=== PATIENT | female | born 1980 | race African-American/Black ===

== ENCOUNTER 2016-12-31 11:18 | Emergency (ER) | payer SELFPAY ==
[2016-12-31] MEDS ORDERED: ONDANSETRON 4 MG TAB.RAPDIS PO ONE (12:24)
--- NOTE | 2016-12-31 12:25 | ER Document Report ---
ED General - General Mode of Arrival: Ambulatory Information source: Patient TRAVEL OUTSIDE OF THE [place] IN LAST 30 DAYS: No - HPI Onset: Other - Refer to HPI notes - General Chief Complaint: Nausea/Vomiting Stated Complaint: BACK/HEAD PAIN Notes: Patient is a 36 year old female presenting to the ED for nausea and headache. Patient states she woke up with these symptoms today. Patient complains of a headache on the left side of her head. Patient states she also has some runny nose, itchy eyes, congestion all of which are worse at night. Patient has these symptoms recurrently each year consistent with seasonal allergies. Patient also complains of some nausea with vomiting but states she has not really vomited anything since she has not eaten today. Patient states she has some numbness/tingling to the entirety of both legs. Patient also has a herniated disc and chronic back pain since 2008. Patient states her back pain has been worsening each year since her accident in 2008. Patient denies any vaginal, urinary, or bowel symptoms. Patient states she does not take anything for back pain. Patient has no known drug allergies. (LISA ORNELAS) - Related Data Allergies/Adverse Reactions: No Known Drug Allergies Allergy (Verified 12/31/16 11:36) Past Medical History - General Information source: Patient - Social History Smoking Status: Current Every Day Smoker Chew tobacco use (# tins/day): No Frequency of alcohol use: None Drug Abuse: None Family History: None Patient has suicidal ideation: No Patient has homicidal ideation: No Pulmonary Medical History: Reports: Hx Asthma GI Medical History: Reports: Hx Gastroesophageal Reflux Disease Psychiatric Medical History: Reports: Hx Bipolar Disorder Past Surgical History: Reports: Hx Orthopedic Surgery - Immunizations Immunizations up to date: No Hx Diphtheria, Pertussis, Tetanus Vaccination: No - unknown last tetanus vaccine Review of Systems - Review of Systems Constitutional: No symptoms reported EENT: See HPI, Nose congestion, Nose discharge Cardiovascular: No symptoms reported Respiratory: No symptoms reported Gastrointestinal: See HPI, Nausea, Vomiting Genitourinary: No symptoms reported Female Genitourinary: No symptoms reported Musculoskeletal: See HPI, Back pain Skin: No symptoms reported Hematologic/Lymphatic: No symptoms reported Neurological/Psychological: See HPI, Headaches -: Yes All other systems reviewed and negative Physical Exam - Vital signs Vitals: Temp Pulse Resp BP Pulse Ox 98.2 F 73 16 118/70 100 12/31/16 11:40 12/31/16 11:40 12/31/16 11:40 12/31/16 11:40 12/31/16 11:40 - Notes Notes: GENERAL: Alert, interacts well. No acute distress. HEAD: Normocephalic, atraumatic. EYES: Pupils equal, round, and reactive to light. Extraocular movements intact. ENT: Oral mucosa moist, tongue midline. NECK: Full range of motion. Supple. Trachea midline. LUNGS: Clear to auscultation bilaterally, no wheezes, rales, or rhonchi. No respiratory distress. HEART: Regular rate and rhythm. No murmurs, gallops, or rubs. ABDOMEN: Soft, non-tender. Non-distended. Bowel sounds present in all 4 quadrants. EXTREMITIES: Moves all 4 extremities spontaneously. Normal straight leg test bilaterally. Good strength and ROM bilaterally. No edema, radial and dorsalis pedis pulses 2/4 bilaterally. No cyanosis. NEUROLOGICAL: Alert and oriented x3. Normal speech. PSYCH: Normal affect, normal mood. SKIN: Warm, dry, normal turgor. No rashes or lesions noted. (LISA ORNELAS) Course - Re-evaluation Re-evalutation: 12/31/16 13:46 UA shows small leukocyte esterase, but 16 squamous epithelial cells, likely a contaminated specimen. This will be sent for culture, but not treated given minimal symptoms and we will call if the culture grows out true infection rather than contamination. Patient's symptoms are all chronic with the exception new mild nausea without any true vomiting but only dry heaving. Symptoms have resolved with Zofran. No evidence of true infection. Patient will be discharged to home, encouraged to follow-up with primary care for provider as an outpatient. Patient acknowledges that all of these other symptoms are old and has been going on for several months now. Recommend patient take ibuprofen and acetaminophen. Follow -up with primary care provider, consider physical therapy, referred to Dr. Rizo. 12/31/16 13:49 Recommended patient use antihistamine such as Claritin or Zyrtec also recommended the patient used nasal steroids. Patient agrees to try the Claritin or Zyrtec, refuses to try steroids as she does not like spraying stuff up her nose. 12/31/16 20:43 (SARI DEE) - Vital Signs Vital signs: Temp Pulse Resp BP Pulse Ox 98.1 F 62 18 126/67 H 100 12/31/16 14:01 12/31/16 14:01 12/31/16 14:01 12/31/16 14:01 12/31/16 14:01 - Laboratory Laboratory results interpreted by me: 12/31/16 12:41 Ur Leukocyte Esterase SMALL H Urine Ascorbic Acid 40 H Discharge - Discharge Clinical Impression: Nausea Chronic low back pain Qualifiers: Back pain laterality: midline Sciatica presence: without sciatica Qualified Code(s): M54.5 - Low back pain Allergic rhinitis Qualifiers: Allergic rhinitis trigger: pollen Allergic rhinitis seasonality: seasonal Qualified Code(s): J30.1 - Allergic rhinitis due to pollen Condition: Stable Disposition: HOME, SELF-CARE Instructions: Chronic Back Pain ([facility]), Stretching Exercises for the Back ([facility]) , Hay Fever ([facility]) Prescriptions: Loratadine [Claritin] 10 mg PO DAILY #30 tablet Forms: Return to Work Scribe Attestation: 12/31/16 20:43 I personally performed the services described in the documentation, reviewed and edited the documentation which was dictated to the scribe in my presence, and it accurately records my words and actions. (SARI DEE) Scribe Documentation - Scribe Written by Lanny:: Lanny Acuña, 12/31/2016 1:00 acting as scribe for :: Kitty
[2016-12-31 13:32] LABS: APPEARANCE,URINE CLOUDY; BILIRUBIN,URINE NEGATIVE (NEGATIVE); GLUCOSE, URINE NEGATIVE (NEGATIVE); KETONES,URINE NEGATIVE (NEGATIVE); LEUKOCYTE ESTERASE,URINE SMALL (NEGATIVE); NITRITE,URINE NEGATIVE (NEGATIVE); PROTEIN,URINE NEGATIVE (NEGATIVE); URINE SPECIFIC GRAVITY 1.012; UROBILINOGEN,URINE NEGATIVE mg/dL (<2.0)
[2016-12-31 14:15] VITALS: BP 126/67
== END 2016-12-31 14:02 | disposition home or self-care (01) ==
LOC: ER 11:18
DX: R11.2 Nausea with vomiting, unspecified (principal); J45.909 Unspecified asthma, uncomplicated; M54.5 Low back pain; G89.29 Other chronic pain; R51 Headache; R09.81 Nasal congestion; R20.0 Anesthesia of skin; R20.2 Paresthesia of skin; F17.200 Nicotine dependence, unspecified, uncomplicated
CPT/HCPCS: 99284; 81025; 81001; S0119

== ENCOUNTER 2017-12-31 12:57 | Emergency (ER) | payer SELFPAY ==
[2017-12-31 13:06] VITALS: BP 102/54
[2017-12-31] MEDS ORDERED: DEXAMETHASONE SOD PHOS INJ 10 MG/1 ML VIAL IM ONE (14:46)
[2017-12-31] MEDS ORDERED: LORATADINE 10 MG TABLET PO ONE (14:47)
[2017-12-31] MEDS ORDERED: PSEUDOEPHEDRINE HCL 30 MG TABLET PO ONE (14:47)
--- NOTE | 2017-12-31 14:52 | ER Document Report ---
ED ENT - General Chief Complaint: Sore Throat Stated Complaint: SORE THROAT,COUGH,CONGESTION Time Seen by Provider: 12/31/17 13:51 Mode of Arrival: Ambulatory Information source: Patient Notes: 37-year-old female presents to ED for cough cold congestion sore throat yesterday. She states she feels like everything is draining from her nose to her chest. She states she has a history of asthma and she is over she might get a pneumonia. TRAVEL OUTSIDE OF THE [place] IN LAST 30 DAYS: No - HPI Patient complains to provider of: Nose problem, Throat problem Onset: Yesterday Onset/Duration: Gradual Quality of pain: Achy Pain Level: 4 Context: Recent Illness Location of pain: Nose, Sinus, Throat Associated symptoms: Congestion, Cough, Runny nose, Sinus pain, Sinus drainage, Sore throat. denies: Fever Similar symptoms previously: Yes Recently seen / treated by doctor: No - Related Data Allergies/Adverse Reactions: No Known Drug Allergies Allergy (Verified 12/31/16 11:36) Past Medical History - General Information source: Patient - Social History Smoking Status: Current Some Day Smoker Cigarette use (# per day): Yes Chew tobacco use (# tins/day): No Smoking Education Provided: Yes - 4 min Frequency of alcohol use: Occasional Drug Abuse: None Occupation: Industry Family History: None Patient has suicidal ideation: No Patient has homicidal ideation: No - Past Medical History Cardiac Medical History: Reports: None Pulmonary Medical History: Reports: Hx Asthma EENT Medical History: Reports: None Neurological Medical History: Reports: None Endocrine Medical History: Reports: None Renal/ Medical History: Reports: None Malignancy Medical History: Reports: None GI Medical History: Reports: Hx Gastroesophageal Reflux Disease Musculoskeltal Medical History: Reports Hx Musculoskeletal Trauma Skin Medical History: Reports None Psychiatric Medical History: Reports: Hx Bipolar Disorder Traumatic Medical History: Reports: Hx Fractures - Jaw Infectious Medical History: Reports: None Past Surgical History: Reports: Hx Orthopedic Surgery - Immunizations Immunizations up to date: No Hx Diphtheria, Pertussis, Tetanus Vaccination: No - unknown last tetanus vaccine Review of Systems - Review of Systems Constitutional: Recent illness EENT: Nose congestion, Nose discharge, Sinus pressure, Sinus discharge, Throat pain Cardiovascular: No symptoms reported Respiratory: Cough Gastrointestinal: No symptoms reported Genitourinary: No symptoms reported Female Genitourinary: No symptoms reported Musculoskeletal: No symptoms reported Skin: No symptoms reported Hematologic/Lymphatic: No symptoms reported Neurological/Psychological: No symptoms reported -: Yes All other systems reviewed and negative Physical Exam - Vital signs Vitals: Temp Pulse Resp BP Pulse Ox 99.1 F 93 18 102/54 L 96 12/31/17 13:04 12/31/17 13:04 12/31/17 13:04 12/31/17 13:04 12/31/17 13:04 Interpretation: Normal - General General appearance: Appears well, Alert - HEENT Head: Normocephalic, Atraumatic Eyes: Normal Pupils: PERRL Ears: Normal External canal: Normal Tympanic membrane: Normal Sinus: Normal Nasal: Purulent discharge, Swelling Mouth/Lips: Normal Mucous membranes: Normal Pharynx: Post nasal drainage. No: Erythema, Exudate, Peritonsillar abscess, Retropharyngeal abscess, Tonsillar hypertrophy, Potential airway comprom. Neck: Normal - Respiratory Respiratory status: No respiratory distress Chest status: Nontender Breath sounds: Nonproductive cough. No: Productive cough, Rales, Rhonchi, Stridor, Wheezing Chest palpation: Normal - Cardiovascular Rhythm: Regular Heart sounds: Normal auscultation Murmur: No - Abdominal Inspection: Normal Distension: No distension Bowel sounds: Normal Tenderness: Nontender Organomegaly: No organomegaly - Back Back: Normal, Nontender - Extremities General upper extremity: Normal inspection, Nontender, Normal color, Normal ROM , Normal temperature General lower extremity: Normal inspection, Nontender, Normal color, Normal ROM , Normal temperature, Normal weight bearing. No: Chery's sign - Neurological Neuro grossly intact: Yes Cognition: Normal Orientation: AAOx4 Nucla Coma Scale Eye Opening: Spontaneous Homero Coma Scale Verbal: Oriented Homero Coma Scale Motor: Obeys Commands Nucla Coma Scale Total: 15 Speech: Normal Motor strength normal: LUE, RUE, LLE, RLE Sensory: Normal - Psychological Associated symptoms: Normal affect, Normal mood - Skin Skin Temperature: Warm Skin Moisture: Dry Skin Color: Normal Course - Re-evaluation Re-evalutation: 12/31/17 14:59 Patient was treated with Claritin and Sudafed and Decadron for her respiratory infection symptoms. She does have a history of asthma so that is why she received a steroid. She also received a prescription for albuterol. After performing a Medical Screening Examination, I estimate there is LOW risk for ACUTE CORONARY SYNDROME, RESPIRATORY FAILURE, SEPSIS OR MENINGITIS, thus I consider the discharge disposition reasonable. I have reevaluated this patient multiple times and no significant life threatening changes are noted. The patient and I have discussed the diagnosis and risks, and we agree with discharging home with close follow-up. We also discussed returning to the Emergency Department immediately if new or worsening symptoms occur. We have discussed the symptoms which are most concerning (e.g., changing or worsening pain, trouble swallowing or breathing, neck stiffness, fever) that necessitate immediate return. - Vital Signs Vital signs: Temp Pulse Resp BP Pulse Ox 99.1 F 93 18 102/54 L 96 12/31/17 13:04 12/31/17 13:04 12/31/17 13:04 12/31/17 13:04 12/31/17 13:04 Discharge - Discharge Clinical Impression: Viral sore throat URI (upper respiratory infection) Qualifiers: URI type: unspecified URI Qualified Code(s): J06.9 - Acute upper respiratory infection, unspecified Condition: Stable Disposition: HOME, SELF-CARE Instructions: Family Physicians / Practices Additional Instructions: SORE THROAT: Sore throats may be caused by viruses, bacteria, or fungi. Most are due to a virus, and must get better on their own. Bacterial sore throats, particularly those due to "strep," need treatment with antibiotics. If an antibiotic is prescribed, be sure to take the medication for a full 10 days. Failure to take the antibiotic can result in complications such as rheumatic fever. Sometimes, an injection of antibiotics is given instead of pills or liquid. This single "shot" is equal in effectiveness to the oral medication. To relieve symptoms, take acetaminophen for pain. Sip clear liquids frequently, or eat popsicles or ice chips. Anesthetic sprays or lozenges may help. Make sure the air in the room is not too dry. Avoid using decongestants or antihistamines. Call the doctor if there is no improvement in two days, or if you have difficulty breathing, increasing throat pain, high fever, rash, or frequent vomiting. UPPER RESPIRATORY ILLNESS: You have a viral infection of the respiratory passages -- a "cold." This common infection causes nasal congestion, drainage, and often sore throat and cough. It is highly contagious. The disease usually lasts about 10 to 14 days. There is no "cure" for the viral infection -- it must run its course. If there is a complication, such as bacterial infection in the nose, sinuses, middle ear, or bronchial tubes, antibiotics may be required. The antibiotics won't affect the virus. Drink plenty of fluids. A humidifier may help. An expectorant medication or decongestant may make you more comfortable. Use acetaminophen or ibuprofen for fever or aches. See the doctor if fever persists over two days, if there is any significant worsening of your symptoms, or if you simply fail to improve as expected. DECONGESTANT MEDICATION: A decongestant medicine has been prescribed. Often this medicine is combined in the same tablet with an antihistamine or expectorant. This type of medicine is helpful in treating a bad cold or sinus condition, as well as in treatment of the nasal congestion of hay fever. It is not of much benefit for lung infections. Decongestant medicines are related to stimulants. They can cause an increase in blood pressure and heart rate. Persons with heart disease and high blood pressure should not take decongestants without discussing this with the physician. If you develop palpitations, chest pain, headache, or tremors, stop the medicine and consult your physician. COUGH-SUPPRESSANT & EXPECTORANT MEDICATION: You are to use a cough medication as needed for relief of symptoms. This medicine is a combination of an expectorant (to make the mucous thinner and more easily "coughed up") and a cough suppressant (to reduce the frequency of coughing). The cough-suppressant medicine is related to narcotics. You may experience mild nausea and sleepiness. Some patients who are very sensitive to narcotics may have stomach pain from this medicine. Taking the medicine with food reduces these side effects. Do not drive or work with machinery until you know how this medicine affects you. The expectorant should have no side effects. Iodine-containing expectorants (such as organidin) should not be taken by persons with active thyroid disease unless approved by your doctor. Call the doctor if you develop shortness of breath, hives, rash, itching, lightheadedness, or severe nausea and vomiting. INHALED BRONCHODILATORS: You have received a treatment of and/or prescription for an inhaled bronchodilator -- a medication which stimulates the airways in the lung to dilate. This improves the flow of air in asthma, bronchitis, and emphysema. These medicines have some similarity to adrenaline, and can cause similar side effects: shakiness, racing heart, and a sense of nervousness. These side effects decrease with time. Contact your doctor if these side effects are severe. Do not over-use the medicine. Too-frequent use of the inhaler may make it ineffective. Call your doctor if the inhaler is not controlling your symptoms at the prescribed doses. STEROID MEDICATION: You have been given an injection of or oral medicine of the cortisone/ steroid class. This medication is used to control inflammation or allergy. Conrad t is usually only given for a short period of time, until the acute process subsides. There are usually no side effects from short-term use of cortisone-like medications. Some persons feel an increased sense of well-being and are not sleepy at bedtime. Long-term use of cortisone medications is best avoided, unless required for a severe condition. If your condition does not remit, or relapses after the course of corticosteroid medication, you should consult your physician. USE OF ACETAMINOPHEN (Tylenol): Acetaminophen may be taken for pain relief or fever control. It's much safer than aspirin, offering a wider range of "safe" dosages. It is safe during . Some brand names are Tylenol, Panadol, Datril, Anacin 3, Tempra, and Liquiprin. Acetaminophen can be repeated every four hours. The following are maximum recommended dosages: >89 pounds or adults 650 mg to 900 mg Acetaminophen can be repeated every four hours. Maximum dose not to exceed 4000 mg a day. SMOKING: If you smoke, you should stop smoking. The tar and chemicals in cigarette smoke are harmful. Smoking has been shown to cause: emphysema chronic bronchitis lung cancer mouth and throat cancer stomach and pancreas cancer premature aging defects In addition, smoking increases ear and lung infections in children of smokers. STEROID MEDICATION: You have been given a medicine of the cortisone/steroid class. This medication is used to control inflammation or allergy. It is usually only given for a short period of time, until the acute process subsides. There are usually no side effects from short-term use of cortisone-like medications. Some persons feel an increased sense of well-being and are not sleepy at bedtime. Long-term use of cortisone medications is best avoided, unless required for a severe condition. If your condition does not remit, or relapses after the course of corticosteroid medication, you should consult your physician. FOLLOW-UP CARE: If you have been referred to a physician for follow-up care, call the physician s office for an appointment as you were instructed or within the next two days. If you experience worsening or a significant change in your symptoms, notify the physician immediately or return to the Emergency Department at any time for re-evaluation. Prescriptions: Albuterol Sulfate [Proair HFA Inhalation Aerosol 8.5 gm MDI] 2 puff IH Q4H PRN # 1 mdi PRN Reason: Forms: Smoking Cessation Education, Return to Work
== END 2017-12-31 15:02 | disposition home or self-care (01) ==
LOC: ER 12:57
DX: J06.9 Acute upper respiratory infection, unspecified (principal); J02.9 Acute pharyngitis, unspecified; B97.89 Other viral agents as the cause of diseases classified elsewhere; R05 Cough; R09.81 Nasal congestion; R09.89 Other specified symptoms and signs involving the circulatory and respiratory systems; R51 Headache; J45.909 Unspecified asthma, uncomplicated; F17.210 Nicotine dependence, cigarettes, uncomplicated
CPT/HCPCS: 99282

== ENCOUNTER 2018-03-06 14:37 | Emergency (ER) | payer SELFPAY ==
--- NOTE | 2018-03-06 14:47 | ER Document Report ---
HPI - HPI Patient complains to provider of: Toothache Onset: Other - Friday Onset/Duration: Gradual, Persistent Pain Level: 5 Context: 37-year-old female complaining of upper left first bicuspid toothache since Friday. No facial swelling. Associated Symptoms: None Exacerbated by: Denies Relieved by: Denies Similar symptoms previously: Yes Recently seen / treated by doctor: No - ROS ROS below otherwise negative: Yes Systems Reviewed and Negative: Yes All other systems reviewed and negative - REPRODUCTIVE Reproductive: DENIES: : Past Medical History - General Information source: Patient - Social History Smoking Status: Current Every Day Smoker Frequency of alcohol use: None Drug Abuse: None Lives with: Family Family History: None Pulmonary Medical History: Reports: Hx Asthma Renal/ Medical History: Denies: Hx Peritoneal Dialysis GI Medical History: Reports: Hx Gastroesophageal Reflux Disease Musculoskeletal Medical History: Reports Hx Musculoskeletal Trauma Psychiatric Medical History: Reports: Hx Bipolar Disorder Traumatic Medical History: Reports: Hx Fractures - Jaw Past Surgical History: Reports: Hx Orthopedic Surgery - Immunizations Immunizations up to date: No Hx Diphtheria, Pertussis, Tetanus Vaccination: No - unknown last tetanus vaccine Vertical Provider Document - CONSTITUTIONAL Agree With Documented VS: Yes Exam Limitations: No Limitations - INFECTION CONTROL TRAVEL OUTSIDE OF THE [place] IN LAST 30 DAYS: No - HEENT Notes: Dental decay with retracted gingiva to the first bicuspid upper left. The other bicuspid and molars are gone on that side. No abscess palpated. - NECK Neck: Supple. negative: Lymphadenopathy-Left, Lymphadenopathy-Right - NEURO Level of Consciousness: Alert Discharge - Discharge Clinical Impression: Dental pain and decay Condition: Good Disposition: HOME, SELF-CARE Instructions: Acetaminophen, [facility] On [facility], Ibuprofen (General) ([facility]) , Penicillin V K ([facility]), Toothache ([facility]) Additional Instructions: Lidocaine to numb the area Penicillin to kill the bacteria in the mouth Tylenol up to 4000 mg per day for pain Ibuprofen 400 mg every 6 hours for pain See the dentist Prescriptions: Ibuprofen [Motrin 400 mg Tablet] 400 mg PO Q6HP PRN #30 tablet PRN Reason: Penicillin V Potassium [Penicillin Vk 500 mg Tablet] 500 mg PO QID #40 tablet
[2018-03-06] MEDS ORDERED: PENICILLIN V POTASSIUM 500 MG TABLET PO ONE (15:02)
[2018-03-06] MEDS ORDERED: LIDOCAINE 2% VISCOUS SOLN 20 ML UDCUP PO ONE (15:02)
[2018-03-06] MEDS ORDERED: ACETAMINOPHEN 325 MG TABLET PO ONE (15:02)
[2018-03-06 15:11] VITALS: BP 120/68
== END 2018-03-06 15:30 | disposition home or self-care (01) ==
LOC: ER 14:37
DX: K02.9 Dental caries, unspecified (principal); K08.89 Other specified disorders of teeth and supporting structures; F17.200 Nicotine dependence, unspecified, uncomplicated; J45.909 Unspecified asthma, uncomplicated
CPT/HCPCS: 99282; J3490

== ENCOUNTER 2018-10-09 19:19 | Emergency (ER) | payer SELFPAY ==
[2018-10-09] MEDS ORDERED: PREDNISONE 20 MG TABLET PO ONE (21:07)
[2018-10-09] MEDS ORDERED: IPRATROPIUM/ALBUTEROL 0.5-2.5 MG/3 ML AMPUL NEB ONE (21:07)
--- NOTE | 2018-10-09 22:09 | ER Document Report ---
ED General - General Chief Complaint: Cold Symptoms Stated Complaint: COLD SYMPTOMS Time Seen by Provider: 10/09/18 21:05 Mode of Arrival: Ambulatory Information source: Patient TRAVEL OUTSIDE OF THE U.S. IN LAST 30 DAYS: No - HPI Patient complains to provider of: Bad cold, nasal congestion, runny nose, chest congestion, wheezing, coughin Onset: Other - 2-3 days Onset/Duration: Gradual, Persistent Quality of pain: No pain Severity: None Associated symptoms: Nonproductive cough, Rhinnorhea. denies: Chills, Diarrhea, Fever, Nausea, Vomiting, Sore throat Exacerbated by: Denies Relieved by: Denies Similar symptoms previously: No Recently seen / treated by doctor: No Notes: 2-year-old -[place] female with presentation for bad cold including nasal congestion, runny nose, chest congestion, wheezing and coughing and sneezing. Symptoms started a couple of days ago. Patient is a smoker and is asthmatic. Wheezing is worse. No nausea vomiting or diarrhea - Related Data Allergies/Adverse Reactions: No Known Drug Allergies Allergy (Verified 12/31/16 11:36) Past Medical History - General Information source: Patient - Social History Smoking Status: Current Every Day Smoker Chew tobacco use (# tins/day): No Frequency of alcohol use: None Drug Abuse: None Family History: None, Reviewed & Not Pertinent Patient has suicidal ideation: No Patient has homicidal ideation: No Pulmonary Medical History: Reports: Hx Asthma Renal/ Medical History: Denies: Hx Peritoneal Dialysis GI Medical History: Reports: Hx Gastroesophageal Reflux Disease Musculoskeletal Medical History: Reports Hx Musculoskeletal Trauma Psychiatric Medical History: Reports: Hx Bipolar Disorder Traumatic Medical History: Reports: Hx Fractures - Jaw Past Surgical History: Reports: Hx Orthopedic Surgery - Immunizations Immunizations up to date: No Hx Diphtheria, Pertussis, Tetanus Vaccination: No - unknown last tetanus vaccine Review of Systems - Review of Systems Notes: Constitutional: No fevers. No chills. EENT: No eye redness. No eye pain. No ear pain. No sore throat. Nasal and sinus congestion Cardiovascular: No chest pain. No palpitations. Respiratory: Harsh, dry cough. No shortness of breath. No respiratory distress. Positive wheezing Gastrointestinal: No abdominal pain. No nausea, vomiting, or diarrhea. Genitourinary: Atraumatic. No lesions. No pain. No discharge. Musculoskeletal: Atraumatic. No swelling. No deformities. Skin: No rash or lesions. Lymphatic: No swollen lymph nodes. Neurologic: No headache. No syncope. Psychiatric: No suicidal or homicidal ideation. Physical Exam - Vital signs Vitals: Temp Pulse Resp BP Pulse Ox 99.3 F 82 16 130/79 H 100 10/09/18 19:28 10/09/18 19:28 10/09/18 19:28 10/09/18 19:28 10/09/18 19:28 - Notes Notes: General: Well-developed, well-nourished. In no acute distress. Non-toxic appearing. Cardiac: Well-perfused. Regular rate and rhythm. No murmurs, rubs, or gallops. Pulmonary: Bilateral wheezing. No respiratory distress. Abdominal: Non-distended. Non-rigid. Bowels sounds are present in all four quadrants. No guarding or rebound. HEENT: Head is atraumatic. Conjunctivae not reddened. No tearing. PERRL. EOMI. Orbits atraumatic. No periorbital swelling or erythema. Oropharynx is without erythema, swelling, or exudates. Neck: Supple. No adenopathy. No meningismus. Dermatologic: Warm with good turgor. No rash. Atraumatic. Chest: Atraumatic. No chest wall tenderness to palpation. Musculoskeletal: Moves all extremities well. No range of motion deficits. no muscular or joint tenderness. No paraspinal muscle tenderness. no midline spinal tenderness or step-off. Genitourinary: Examination deferred Neurologic: No gross neurologic deficits. Psychiatric: Normal mood. Course - Re-evaluation Re-evalutation: 10/09/18 22:08 Patient has improved after 3 consecutive DuoNeb's. We will discharge her home with upper respiratory and asthma flare. - Vital Signs Vital signs: Temp Pulse Resp BP Pulse Ox 99.3 F 82 16 130/79 H 100 10/09/18 19:28 10/09/18 19:28 10/09/18 19:28 10/09/18 19:28 10/09/18 19:28 Discharge - Discharge Clinical Impression: Upper respiratory infection Qualifiers: URI type: unspecified URI Qualified Code(s): J06.9 - Acute upper respiratory infection, unspecified Asthma exacerbation Qualifiers: Asthma severity: unspecified severity Asthma persistence: unspecified Qualified Code(s): J45.901 - Unspecified asthma with (acute) exacerbation Condition: Good Disposition: HOME, SELF-CARE Instructions: Upper Respiratory Illness ([facility]), Asthma ([facility]) Prescriptions: D-Methorphan Hb/P-Epd HCl/Bpm [Bromfed-DM Cough Syrup] 5 ml PO Q4HP PRN #150 ml PRN Reason: Albuterol Sulfate [Proair HFA Inhalation Aerosol 8.5 gm MDI] 2 puff IH Q4H PRN #1 mdi PRN Reason: Prednisone [Deltasone 20 mg Tablet] 3 tab PO DAILY 5 Days #15 tablet Forms: Smoking Cessation Education Referrals: [facility] [Provider Group] - Follow up in 3-5 days
[2018-10-09 22:43] VITALS: BP 126/65
== END 2018-10-09 22:42 | disposition home or self-care (01) ==
LOC: ER 19:19
DX: J06.9 Acute upper respiratory infection, unspecified (principal); J45.901 Unspecified asthma with (acute) exacerbation; R09.81 Nasal congestion; R09.89 Other specified symptoms and signs involving the circulatory and respiratory systems; R05 Cough; R06.7 Sneezing; F17.200 Nicotine dependence, unspecified, uncomplicated
CPT/HCPCS: 94640; 99283; J7512; J7620

== ENCOUNTER 2019-05-12 08:19 | Emergency (ER) | payer SELFPAY ==
[2019-05-12 08:24] VITALS: BP 107/73
[2019-05-12] MEDS ORDERED: PREDNISONE 20 MG TABLET PO ONE (09:25)
[2019-05-12] MEDS ORDERED: IPRATROPIUM/ALBUTEROL 0.5-2.5 MG/3 ML AMPUL NEB ONE (09:25)
--- NOTE | 2019-05-12 09:31 | ER Document Report ---
ED Respiratory Problem - General Chief Complaint: Cold Symptoms Stated Complaint: COUGH Time Seen by Provider: 05/12/19 09:04 TRAVEL OUTSIDE OF THE U.S. IN LAST 30 DAYS: No - HPI Notes: This is a 38-year-old female who presents today with a complaint of cough, congestion, sneezing, rhinorrhea for the past 2 days. Patient states that she thinks is because of the head cold and Does not wanted to get any worse. She has a history of asthma which is usually triggered by changes in weather. She describes her cough is productive of clear sputum. She denies any fever or chills. She denies any chest pain. There are no obvious aggravating or relieving factors. - Related Data Allergies/Adverse Reactions: No Known Drug Allergies Allergy (Verified 12/31/16 11:36) Past Medical History - Social History Smoking Status: Current Some Day Smoker Chew tobacco use (# tins/day): No Frequency of alcohol use: None Drug Abuse: None Family History: None, Reviewed & Not Pertinent Patient has suicidal ideation: No Patient has homicidal ideation: No Pulmonary Medical History: Reports: Hx Asthma Renal/ Medical History: Denies: Hx Peritoneal Dialysis GI Medical History: Reports: Hx Gastroesophageal Reflux Disease Musculoskeletal Medical History: Reports Hx Musculoskeletal Trauma Psychiatric Medical History: Reports: Hx Bipolar Disorder Traumatic Medical History: Reports: Hx Fractures - Jaw Past Surgical History: Reports: Hx Orthopedic Surgery - Immunizations Immunizations up to date: No Hx Diphtheria, Pertussis, Tetanus Vaccination: No - unknown last tetanus vaccine Review of Systems - Review of Systems Constitutional: denies: Fever EENT: Nose congestion, Sinus pressure Cardiovascular: denies: Chest pain, Palpitations Respiratory: Cough, Sputum, Wheezing -: Yes All other systems reviewed and negative Physical Exam - Vital signs Vitals: Temp Pulse Resp BP Pulse Ox 99.1 F 77 16 107/73 100 05/12/19 08:23 05/12/19 08:23 05/12/19 08:23 05/12/19 08:23 05/12/19 08:23 - General General appearance: Appears well, Alert - Respiratory Respiratory status: No respiratory distress Chest status: Nontender Breath sounds: Rhonchi, Wheezing - Scattered wheezes and rhonchi appreciated. Chest palpation: Normal - Cardiovascular Rhythm: Regular Heart sounds: Normal auscultation Murmur: No - Abdominal Inspection: Normal Distension: No distension Bowel sounds: Normal Tenderness: Nontender Organomegaly: No organomegaly - Neurological Neuro grossly intact: Yes Cognition: Normal Orientation: AAOx4 Homero Coma Scale Eye Opening: Spontaneous Homero Coma Scale Verbal: Oriented Homero Coma Scale Motor: Obeys Commands Homero Coma Scale Total: 15 Speech: Normal Motor strength normal: LUE, RUE, LLE, RLE Sensory: Normal - Psychological Associated symptoms: Normal affect, Normal mood - Skin Skin Temperature: Warm Skin Moisture: Dry Skin Color: Normal Course - Re-evaluation Re-evalutation: 05/12/19 09:31 Differential diagnosis includes bronchitis versus asthma exacerbation versus pneumonia. 05/12/19 10:56 Patient reevaluated. Patient is doing well. No wheezing. She is stable for discharge. Chest x-ray negative. Given rhonchi on exam, I will put her on a Z- Nishant for bronchitis. Follow-up discussed with patient. - Vital Signs Vital signs: Temp Pulse Resp BP Pulse Ox 99.1 F 77 16 107/73 100 05/12/19 08:23 05/12/19 08:23 05/12/19 08:23 05/12/19 08:23 05/12/19 08:23 - Diagnostic Test Radiology reviewed: Reports reviewed Discharge - Discharge Clinical Impression: Acute bacterial bronchitis Asthma with exacerbation Qualifiers: Asthma severity: mild Asthma persistence: unspecified Qualified Code(s): J45.901 - Unspecified asthma with (acute) exacerbation Condition: Good Disposition: HOME, SELF-CARE Instructions: Upper Respiratory Illness ([facility]), Asthma ([facility]) Prescriptions: Prednisone [Deltasone 20 mg Tablet] 2 tab PO DAILY 5 Days #10 tablet Albuterol Sulfate [Proair HFA Inhalation Aerosol 8.5 gm MDI] 2 puff IH Q4H PRN #1 mdi PRN Reason: Azithromycin [Zithromax 250 mg Tablet] 250 mg PO ASDIR PRN #6 tablet PRN Reason: Forms: Return to Work Referrals: [facility] [NO LOCAL MD] - Follow up as needed
--- NOTE | 2019-05-12 10:53 | RADIOLOGY REPORT (SQ) ---
EXAM DESCRIPTION: CHEST 2 VIEWS COMPLETED DATE/TIME: 05/12/2019 10:26 am REASON FOR STUDY: cough COMPARISON: 10/25/2014 EXAM PARAMETERS: NUMBER OF VIEWS: two views TECHNIQUE: Digital Frontal and Lateral radiographic views of the chest acquired. RADIATION DOSE: NA LIMITATIONS: none FINDINGS: LUNGS AND PLEURA: No opacities, masses or pneumothorax. No pleural effusion. MEDIASTINUM AND HILAR STRUCTURES: No masses or contour abnormalities. HEART AND VASCULAR STRUCTURES: Heart normal size. No evidence for failure. BONES: No acute findings. HARDWARE: None in the chest. OTHER: No other significant finding. IMPRESSION: NO ACUTE RADIOGRAPHIC FINDING IN THE CHEST. TECHNICAL DOCUMENTATION: JOB ID: [id number] [employer]- All Rights Reserved Reading location - IP/workstation name: [email or web address]
== END 2019-05-12 11:17 | disposition home or self-care (01) ==
LOC: ER 08:19
DX: J20.9 Acute bronchitis, unspecified (principal); B96.89 Other specified bacterial agents as the cause of diseases classified elsewhere; J45.901 Unspecified asthma with (acute) exacerbation; R05 Cough; R06.7 Sneezing; J34.89 Other specified disorders of nose and nasal sinuses; F17.200 Nicotine dependence, unspecified, uncomplicated
CPT/HCPCS: 94640; 99283; 71046; J7512; J7620

== ENCOUNTER → 2019-11-06 | Outpatient (CLI) | payer SELFPAY ==
--- NOTE | 2019-11-06 13:41 | ER RDC ASSESSMENT REPORT ---
Intake - In the Last 14 days Have you traveled outside [place]?: No Have you been in close contact with someone CONFIRMED: No Worked in Healthcare?: No - Symptoms Subjective Fever([place] feverish): No Chills: No Muscule Aches: No Runny Nose: Yes Sore Throat: No Cough (New or worsening chronic cough): Yes Shortness of breath: Yes Nausea or Vomiting: No Headache: Yes Abdominal Pain: No Diarrhea(3 or more loose stools in last 24 hours): No - Do you have any of the following Chronic lung disease: Asthma or emphysema or COPD: Yes Chronic Lung Disease Comment: Asthma Cystic Fibrosis: No Diabetes: No High Blood Pressure: No Cardiovascular Disease: No Chronic Kidney Disease: No Chronic Liver Disease: No Chronic blood disorder like Sickle Cell Disease: No Weak immune system due to disease or medication: No Neurologic condition that limits movement: No Developmental delay - Moderate to Severe: No Recent (within past 2 weeks) or current : No - Objective Temperature: 98.8 F Pulse Rate: 97 Respiratory Rate: 16 Blood Pressure: 121/61 O2 Sat by Pulse Oximetry: 96 Objective: Patient presents for COVID testing. General - General Stated Complaint: Patient reports upper respiratory symptoms that began 11/01/2019 Mode of Arrival: Ambulatory Information source: Patient - HPI Onset: This morning - Related Data Allergies/Adverse Reactions: No Known Drug Allergies Allergy (Verified 12/31/16 11:36) Past Medical History - Social History Smoking Status: Current Every Day Smoker Smoking Education Provided: Yes - Education on smoking cessation provided Family History: None, Reviewed & Not Pertinent Pulmonary Medical History: Reports: Hx Asthma Renal/ Medical History: Denies: Hx Peritoneal Dialysis GI Medical History: Reports: Hx Gastroesophageal Reflux Disease Musculoskeletal Medical History: Reports Hx Musculoskeletal Trauma Psychiatric Medical History: Reports: Hx Bipolar Disorder Traumatic Medical History: Reports: Hx Fractures - Jaw Past Surgical History: Reports: Hx Orthopedic Surgery Physical Exam - General Notes: PHYSICAL EXAMINATION: GENERAL: Well-appearing and in no acute distress. HEAD: Atraumatic, normocephalic. EYES: sclera anicteric, conjunctiva are normal. ENT: nares patent. Moist mucous membranes. NECK: Normal range of motion, supple without lymphadenopathy LUNGS: CTAB and equal. No wheezes rales or rhonchi. HEART: Regular rate and rhythm without murmurs NEUROLOGICAL: Normal speech. PSYCH: Normal mood, normal affect. SKIN: Warm, Dry, normal turgor, no obvious rashes or lesions noted Diagnostic Results Laboratory Results: Patient notified of POSITIVE result for Influenza A. Also notified of NEGATIVE result for Influenza B and Rapid Strep testing, as well as PENDING results for Strep Culture. Patient Education/Counseling Counseling/Education: Patient presents with upper respiratory symptoms worrisome for possible Covid 19. Patient does not have emergency worring symptoms such as difficulty breathing, shortness of breath, chest pain, pressure, confusion or cyanosis. Patient appears suitable for discharge. Patient's vital signs are stable and patient is nontoxic in appearance. Good return precautions have been discussed with patient, patient verbalized understanding and is agreeable with discharge plan of care at this time. Patient provided with COVID discharge instructions including: As a person under investigation for Covid 19, the [facility] of Health and Human Services, division of public health advises you to adhere to the following guidance until your test results are reported to you. If your test result is positive, you will receive additional information from your provider and your local health department at that time. Remain at home until you are cleared by the health provider or public health authorities. Keep a log of visitors to your home, notify any visitors to your home of your isolation status. If you plan to move to a new address or leave the county, notify the local health department in your County. Call your doctor or seek care if you have an urgent medical need. Before seeking medical care, call ahead to get instructions from the provider before arriving at the medical office clinic or hospital. Notify them that you are being tested for the virus that causes Covid 19 so that arrangements can be made, as necessary, to prevent transmission to others in the healthcare setting. Next, notify the local health department in your county. If a medical emergency arises and you need to call 911, inform the first responders that you are being tested for the virus that causes Covid 19. Next, notify the local health department in your county. Patient advised due to onset of symptoms greater than 72 hours, symptomatic treatment includes the following: - Use OTC acetaminophen (follow directions by certified medication technician) for elevated temperature above 101 degrees - Increase fluid intake to promote hydration - Consume healthy diet as tolerated - Activity as tolerated with periods of rest as necessary - Encouraged smoking cessation Guidance for worsening S/SX: For increased or worsening symptoms patient was instructed to contact her primary care provider. In the presence of life-threatening symptoms, patient instructed to immediately call 911, and go to the closest Emergency Department. RDC Discharge - Discharge Clinical Impression: Influenza A, COVID 19 Screening Condition: Stable Disposition: Home; Selfcare
[2019-11-06 13:47] VITALS: BP 121/61
[2019-11-06 14:15] LABS: A TYPE INFLUENZA AG POSITIVE (NEGATIVE); B INFLUENZA AG NEGATIVE (NEGATIVE)
== END ==
LOC: RDC 13:01 → EDSTATUS 13:25
PROVIDERS: ATTEND Nurse Practitioner Family
DX: Z20.828 Contact with and (suspected) exposure to other viral communicable diseases (principal)
CPT/HCPCS: 87070; 87804; 87880

== ENCOUNTER 2019-12-07 10:27 | Emergency (ER) | payer SELFPAY ==
[2019-12-07 10:33] VITALS: BP 121/65
--- NOTE | 2019-12-07 10:40 | ER Document Report ---
HPI - HPI Patient complains to provider of: dental pain Time Seen by Provider: 12/07/19 10:32 Onset: Last week Onset/Duration: Sudden Quality of pain: Achy Pain Level: 3 Context: 39-year-old female presents emergency department with complaints of right upper dental pain radiating to her ear to her jaw to the back of her neck. She denies fever vomiting diarrhea. Denies sensitivity to heat or cold. Reports symptoms for the past week. Patient reports she is taken a Tylenol Sinus without relief of symptoms. Associated Symptoms: None Exacerbated by: Denies Relieved by: Denies Similar symptoms previously: No Recently seen / treated by doctor: No - CONSTITUTIONAL Constitutional: DENIES: Fever, Chills - EENT EENT: REPORTS: Ear Pain. DENIES: Sore Throat, Eye problems - REPRODUCTIVE LMP: 12/07/2019 Reproductive: DENIES: : Past Medical History - General Information source: Patient Last Menstrual Period: today - Social History Smoking Status: Current Every Day Smoker Chew tobacco use (# tins/day): No Frequency of alcohol use: None Drug Abuse: None Family History: None, Reviewed & Not Pertinent Patient has suicidal ideation: No Patient has homicidal ideation: No Pulmonary Medical History: Reports: Hx Asthma Renal/ Medical History: Denies: Hx Peritoneal Dialysis GI Medical History: Reports: Hx Gastroesophageal Reflux Disease Musculoskeletal Medical History: Reports Hx Musculoskeletal Trauma Psychiatric Medical History: Reports: Hx Bipolar Disorder Traumatic Medical History: Reports: Hx Fractures - Jaw Past Surgical History: Reports: Hx Oral Surgery, Hx Orthopedic Surgery - Immunizations Immunizations up to date: No Hx Diphtheria, Pertussis, Tetanus Vaccination: No - unknown last tetanus vaccine Vertical Provider Document - CONSTITUTIONAL Agree With Documented VS: Yes Exam Limitations: No Limitations General Appearance: WD/WN, No Apparent Distress - INFECTION CONTROL TRAVEL OUTSIDE OF THE [place] IN LAST 30 DAYS: No - HEENT HEENT: Atraumatic, Normal ENT Exam. negative: Conjuctival Injection, Pharyngeal Erythema, Tympanic Membrane Bulging Mouth Diagram: 1 - c/o pain, opens mouth wide clear voice no trismus no erythema no swelling no pustule, no Adebayo - NECK Neck: Normal Inspection, Supple. negative: Lymphadenopathy-Left, Lymphadenopathy-Right - RESPIRATORY Respiratory: Breath Sounds Normal, No Respiratory Distress - CARDIOVASCULAR Cardiovascular: Regular Rate - MUSCULOSKELETAL/EXTREMETIES Musculoskeletal/Extremeties: EMI HIDALGO - NEURO Level of Consciousness: Awake, Alert, Appropriate Motor/Sensory: No Motor Deficit - DERM Integumentary: Warm, Dry Course - Re-evaluation Re-evalutation: 12/07/19 11:06 Patient was instructed on [id number] decongestant. Also instructed on Pen-Vee K. Instructed on the importance of follow-up with a dentist or return to the emergency department for worsening symptoms or concerns. She verbalized understanding to all instructions. - Vital Signs Vital signs: Temp Pulse Resp BP Pulse Ox 98.3 F 72 16 121/65 100 12/07/19 10:34 12/07/19 10:32 12/07/19 10:32 12/07/19 10:32 12/07/19 10:32 Discharge - Discharge Clinical Impression: Pain, dental Condition: Stable Disposition: HOME, SELF-CARE Instructions: Dentist, Use of [id number] Ibuprofen ([facility]), Penicillin V K ([facility]), Toothache ([facility]) Additional Instructions: *You have been evaluated for dental pain *Take medications as prescribed *Follow up with dentist as soon as possible *Return to ED for worsening condition, changes, needs Prescriptions: Penicillin V Potassium [Penicillin Vk 500 mg Tablet] 500 mg PO BID #20 tablet Forms: Smoking Cessation Education
== END 2019-12-07 10:50 | disposition home or self-care (01) ==
LOC: ER 10:27
DX: K08.9 Disorder of teeth and supporting structures, unspecified (principal)
CPT/HCPCS: 99282

== ENCOUNTER 2019-12-16 08:23 | Emergency (ER) | payer SELFPAY ==
[2019-12-16 08:32] VITALS: BP 107/63
--- NOTE | 2019-12-16 09:18 | ER Document Report ---
ED ENT - General Chief Complaint: Sinus Pain Stated Complaint: SINUS PAIN Time Seen by Provider: 12/16/19 08:52 Notes: CHIEF COMPLAINT: Continued sinus discomfort HPI: 39-year-old female presenting back to the emergency department for reevalua tion of continued right sinus discomfort. No fever. Patient states she was seen approximately a week ago placed on penicillin for dental pain and sinus pain. Did not follow-up with a dentist or PCP. Now presenting again for reevaluation of continued discomfort to the right face. No rash. No visual change or loss. States that she does feel slightly better after starting on the penicillin, has been using [id number] Sudafed. Has not been taking any other medications. Has not had facial swelling. ROS: See HPI - all other systems were reviewed and are otherwise negative Constitutional: no fever Eyes: no drainage, no blurred vision ENT: no runny nose, no sore throat, right facial pain positive Cardiovascular: no chest pain Resp: no SOB, no cough GI: no vomiting, no diarrhea, no abdominal pain : no dysuria Integumentary: no rash Allergy: no hives Musculoskeletal: no extremity pain or swelling Neurological: no numbness/tingling, no weakness no visual loss MEDICATIONS: I agree with the patient medications as charted by the RN. ALLERGIES: I agree with the allergies as charted by the RN. PAST MEDICAL HISTORY/PAST SURGICAL HISTORY: Reviewed and agree as charted by RN. SOCIAL HISTORY: Reviewed and agree as charted by RN. FAMILY HISTORY: No significant familial comorbid conditions directly related to patient complaint EXAM: Reviewed vital signs as charted by RN. CONSTITUTIONAL: Alert and oriented and responds appropriately to questions. Well-appearing; well-nourished HEAD: Normocephalic; atraumatic EYES: PERRL; Conjunctivae clear, sclerae non-icteric ENT: normal nose; no rhinorrhea; moist mucous membranes; pharynx without lesions noted, no uvula edema or deviation, no tonsillar hypertrophy, phonation normal. Minimal tenderness over the right maxillary sinus on palpation no visible facial swelling no trismus NECK: Supple without meningismus; non-tender; no cervical lymphadenopathy, no masses CARD: Capillary refill less than 3 seconds; symmetric distal pulses RESP: Normal chest excursion without splinting or tachypnea ABD/GI: Normal bowel sounds; non-distended; soft, non-tender, no rebound, no guarding; no palpable organomegaly or masses. BACK: The back appears normal and is non-tender to palpation, there is no CVA tenderness EXT: Normal ROM in all joints; non-tender to palpation; no cyanosis, no effusions, no edema SKIN: Normal color for age and race; warm; dry; good turgor; no acute lesions noted NEURO: Moves all extremities equally; Motor and sensory function intact PSYCH: The patient's mood and manner are appropriate. Grooming and personal hygiene are appropriate. MDM: 39-year-old female requesting to be treated for sinus issues. She is on penicillin currently. She is on Sudafed currently. Patient states that her symptoms are typical of what she considers to be a sinus infection. I did discuss this at length with her I did offer additional testing to make sure that patient is being treated appropriately including lab work or CT imaging patient declined stating she just wishes further treatment for the sinus issues she believes she has. She has no facial swelling or fever she is on penicillin currently. I will add a short course of steroids and a nasal steroid as well to help with her discomfort and symptoms. She is to follow-up with a primary care provider for reevaluation return for fever greater than 101 or facial swelling TRAVEL OUTSIDE OF THE [place] IN LAST 30 DAYS: No - Related Data Allergies/Adverse Reactions: No Known Drug Allergies Allergy (Verified 12/31/16 11:36) Past Medical History - Social History Smoking Status: Unknown if Ever Smoked Family History: None, Reviewed & Not Pertinent Pulmonary Medical History: Reports: Hx Asthma Renal/ Medical History: Denies: Hx Peritoneal Dialysis GI Medical History: Reports: Hx Gastroesophageal Reflux Disease Musculoskeletal Medical History: Reports Hx Musculoskeletal Trauma Psychiatric Medical History: Reports: Hx Bipolar Disorder Traumatic Medical History: Reports: Hx Fractures - Jaw Past Surgical History: Reports: Hx Oral Surgery, Hx Orthopedic Surgery - Immunizations Immunizations up to date: No Hx Diphtheria, Pertussis, Tetanus Vaccination: No - unknown last tetanus vaccine Physical Exam - Vital signs Vitals: Temp Pulse Resp BP Pulse Ox 98.6 F 84 16 107/63 100 12/16/19 08:31 12/16/19 08:31 12/16/19 08:31 12/16/19 08:31 12/16/19 08:31 Course - Vital Signs Vital signs: Temp Pulse Resp BP Pulse Ox 98.6 F 84 16 107/63 100 12/16/19 08:31 12/16/19 08:31 12/16/19 08:31 12/16/19 08:31 12/16/19 08:31 Discharge - Discharge Clinical Impression: Sinus pain Condition: Stable Disposition: HOME, SELF-CARE Instructions: Sinusitis ([facility]) Additional Instructions: Continue to take Sudafed and your antibiotics as previously prescribed. Use the nasal steroid as prescribed. Take the Decadron as prescribed. Follow-up with a primary care provider for reevaluation of your symptoms if they continue call for appointment within the next 2 to 3 days. If you develop facial swelling or fever greater than 101 return to the emergency department Prescriptions: Dexamethasone [Decadron] 4 mg PO QAM #7 tablet Fluticasone Propionate [Flonase Nasal [place] 50 Mcg/[place] 16 gm] 1 spray NASL Q12 #1 inhaler Forms: Return to Work Referrals: GAETANO WEBSTER MD [[facility]ED STAFF] - Follow up as needed
== END 2019-12-16 10:01 | disposition home or self-care (01) ==
LOC: ER 08:23
DX: J34.89 Other specified disorders of nose and nasal sinuses (principal); K08.89 Other specified disorders of teeth and supporting structures; J45.909 Unspecified asthma, uncomplicated
CPT/HCPCS: 99283